=== PATIENT | female | born 1965 | race Caucasian/White ===

== ENCOUNTER → 2016-12-20 | Outpatient (REF) | payer OTHER | LOC: M SFHCCLAY 16:20 | PROVIDERS: ATTEND Family Medicine | DX: R35.0 Frequency of micturition (principal) ==

== ENCOUNTER → 2017-06-12 | Outpatient (CLI) | payer OTHER | LOC: M CLY 09:43 | DX: M54.2 Cervicalgia (principal) ==

== ENCOUNTER → 2017-08-28 | Outpatient (CLI) | payer OTHER | LOC: M PAIN 14:15 | DX: M79.1 Myalgia (principal); M54.2 Cervicalgia; M19.90 Unspecified osteoarthritis, unspecified site; Z79.899 Other long term (current) drug therapy; Z88.2 Allergy status to sulfonamides | CPT/HCPCS: G0463 ==